=== PATIENT | female | born 1945 | race Caucasian/White ===

== ENCOUNTER 2017-05-24 20:08 | Emergency (ER) | payer MEDICARE, OTHER ==
[~2017-05-24] VITALS: Ht 162.6 cm; Wt 83.5 kg
[2017-05-24 20:16] VITALS: Ht 162.6 cm; Wt 83.5 kg
[2017-05-24] MEDS ORDERED: ACETAMINOPHEN 325 MG TAB PO ONE (22:00)
--- NOTE | 2017-05-24 22:41 | RADRPT ---
PROCEDURE: CT Head without. CLINICAL INDICATION: Head injury. TECHNIQUE: The study was performed utilizing a multi-slice, multidetector CT scanner. Direct spira l 1 mm axial sections were obtained through the head without the use of intravenous contrast materia l. 1 or more of the following dose reduction techniques were utilized: Automated exposure control, adjustment of the mA and/or kV according to patient's size, iterative reconstruction technique. Co betsy and sagittal reformations were obtained. The images were reviewed on a PACS workstation. RADIATION DOSE: CTDIvol: 40.5 mGyDLP: 720.2 mGy-cm COMPARISON: No prior studies are available for comparison. FINDINGS: There is no intracranial hemorrhage, extra-axial fluid collection, mass lesion, midline shift or hyd rocephalus. There is mild prominence of the cerebral sulci, lateral and third ventricles. There is mild periventricular and subcortical white matter hypodensity. There is mild arteriosclerotic calc ification of the parasellar internal carotid arteries. The beal-white matter differentiation is pre served. The basal cisterns are patent. The midline structures are intact. There is soft tissue sw elling in the right parietal region without evidence of underlying calvarial fracture. The orbits ar e normal in appearance. The visualized paranasal sinuses, mastoid air cells and middle ear cavities are normally aerated. IMPRESSION: 1. No acute intracranial abnormality. No intracranial hemorrhage, extra-axial fluid collection, ma ss lesion or hydrocephalous. 2. Mild peripheral and central cerebral volume loss. 3. Slight tissue swelling in the right parietal region without evidence of underlying calvarial fra cture. 4. Mild periventricular and subcortical white matter hypodensity, likely related to chronic microan giopathic changes. RPTAT: HGAS .Yogi Sheridan MD, Date Time Electronically viewed and signed by .Yogi Sheridan MD, MD on 05/24/2017 22:41 .S/
--- NOTE | 2017-05-24 22:42 | RADRPT ---
PROCEDURE: XR Chest. CLINICAL INDICATION: Chest pain. TECHNIQUE: AP portable views of the chest were obtained. COMPARISON: None available FINDINGS: The cardiomediastinal silhouette is within normal limits. There is moderate atherosclerosis of the t horacic aorta with tortuous appearance of the aorta. There is no evidence of aneurysm formation. Th e lungs are clear. No signs of pleural fluid or pneumothorax are seen. The osseous structures and so ft tissues are unremarkable. IMPRESSION: 1. No evidence for active cardiopulmonary disease. 2. Moderate atherosclerosis of the thoracic aorta. RPTAT: HGAS .Yogi Sheridan MD, Date Time Electronically viewed and signed by .Yogi Sheridan MD, on 05/24/2017 22:42 .S/
--- NOTE | 2017-05-24 22:44 | RADRPT ---
PROCEDURE: XR Hand. CLINICAL INDICATION: Right hand pain status post fall. TECHNIQUE: AP, lateral and oblique views of the right and were obtained. COMPARISON: No prior studies are available for comparison. FINDINGS: The area of indicated pain is over the right fifth digit. The right fifth metacarpal, proximal middl e and distal phalanges are intact. There is diffuse severe osteoarthritis involving the second throu gh fifth PIP and DIP joints with erosive osteoarthritis involving the third and fourth DIP joints an d the third PIP joint. There is also suggestion of early erosive deformity involving the second DIP joint. There is diffuse moderate osteopenia. There is no evidence of fracture. IMPRESSION: 1. No acute fracture involving the fifth digit/medial right hand. 2. 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 RPTAT: HGAS .Yogi Sheridan MD, MD Date Time Electronically viewed and signed by .Yogi Sheridan MD, on 05/24/2017 22:43 .S/
--- NOTE | 2017-05-24 22:45 | RADRPT ---
PROCEDURE: XR Ribs. CLINICAL INDICATION: Right-sided rib pain. TECHNIQUE: Multiple oblique views of the right ribs were obtained. The images were reviewed on a PACS workstation. COMPARISON: None. FINDINGS: There is extensive motion artifact on the oblique view, limiting evaluation. There is diffuse modera te osteopenia. No definite right-sided rib fracture is seen on the AP and LPO views. IMPRESSION: 1. Significantly limited evaluation due to extensive motion in the right posterior oblique view. No definite right-sided rib fracture is seen on the AP or LPO views. 2. The left sided ribs appear intact. RPTAT: HGAS .Yogi Sheridan MD, MD Date Time Electronically viewed and signed by .Yogi Sheridan MD, on 05/24/2017 22:45 .S/
--- NOTE | 2017-05-24 22:49 | RADRPT ---
PROCEDURE: CT Cervical Spine without contrast. CLINICAL INDICATION: Cervical spine pain status post trauma. TECHNIQUE: The study was performed on a multislice multidetector CT scanner. Spiral axial 1 mm im ages were obtained through the cervical spine and reformatted at 2.5 mm slice thickness without cont rast. 1 or more of the following dose reduction techniques were utilized: Automated exposure contr ol, adjustment of the mA and/or kV according to patient's size, iterative reconstruction technique. Coronal and sagittal reformations were obtained. The images were reviewed on a PACS workstation. RADIATION DOSE: CTDIvol: 22.4 mGyDLP: 6 and 10.2 mGy-cm COMPARISON: No prior studies are available for comparison. FINDINGS: There is trace retrolisthesis of C5 on C6 and trace anterolisthesis of C6 on C7. There are anterior osteophytes at C5 696 with moderate disc-space narrowing and associated discogenic endplate changes. The remaining vertebral body heights are maintained. There is diffuse moderate osteopenia. There is prominent subchondral sclerosis in the inferior T5 endplate, age indeterminate. The posterior eleme nts are unremarkable. The cervical canal is unremarkable. There is a no bone destruction or sclerosi s. The paraspinal soft tissues are unremarkable. No significant paraspinal soft tissue swelling. C2-3: The posterior margin of the disc, thecal sac and neural foramina are normal in appearance. C3-4: The posterior margin of the disc, thecal sac and neural foramina are normal in appearance. C4-5: There is a 1-2 mm posterior disc/osteophyte complex. The thecal sac and neural foramina are p atent. There is mild bilateral facet spondylosis. C5-6: There is a broad-based 2 mm right paracentral disc/osteophyte complex. The thecal sac is gloria nt. There is mild bilateral facet hypertrophy and moderate right uncovertebral joint spondylosis. Th ere is moderate right neural foraminal narrowing. The left neural foramen is patent. C6-7: There is a broad-based 2 mm posterior disc/osteophyte complex. The thecal sac is patent. The re is mild bilateral facet intervertebral joint spondylosis. There is mild to moderate bilateral ignacio ral foraminal narrowing. C7-T1: There is a 1-2 mm posterior disc/osteophyte complex. The thecal sac and neural foramina are patent. IMPRESSION: 1. Subchondral sclerosis in the inferior T5 vertebral body, which appears to be related to severe s pondylosis at this level, though incompletely visualized. If clinical concern for axial loading inju ry, MRI of the thoracic spine may be helpful to exclude underlying acute fracture. 2. Moderate spondylosis at C5-6 and C6-7 without significant central stenosis. 3. No acute abnormality of the cervical spine. No evidence of fracture or dislocation. RPTAT: HGAS .Yogi Sheridan MD, MD Date Time Electronically viewed and signed by .Yogi Sheridan MD, MD on 05/24/2017 22:49 .S/
[2017-05-24] MEDS ORDERED: ACET500C5 PO (23:07)
--- NOTE | 2017-05-24 23:15 | ERD ---
ER Documentation Chief Complaint Date/Time DATE: 05/24/17 TIME: 23:09 Chief Complaint sp ground level fall. scalp laceration, no ko HPI 71-year-old female patient with a past medical history of diabetes and hypertension presents to the ED complaining of a mechanical fall that occurred earlier today. Patient reports that she was helping her daughter move items and she accidentally missed a foot step and fell in the back of her head. Reports that she sustained a laceration. Reports that she fell on the right side of her body. States that she has some right rib pain as well as right hand pain. Reports that she is right-handed. Describes pain as achy and rates it a 5 out of 10. Denies any loss of consciousness. Denies taking any blood thinners. Denies any chest pain, shortness of breath, nausea, vomiting, diarrhea, constipation. ROS All systems reviewed and are negative except as per history of present illness. Medications Home Meds Active Scripts Acetaminophen* (Tylophen*) 500 Mg Capsule, 1 CAP PO Q6H Y for PAIN AND OR ELEVATED TEMP, #20 CAP Prov:ROSS BACON PA-C 05/24/17 Allergies Allergies: Coded Allergies: No Known Allergy (Unverified , 05/24/17) PMhx/Soc History of Surgery: Yes (Appy,Hysterectomy) Anesthesia Reaction: No Hx Neurological Disorder: No Hx Respiratory Disorders: No Hx Cardiac Disorders: Yes (HTN) Hx Psychiatric Problems: No Hx Miscellaneous Medical Probl: Yes (NIDDM) Hx Alcohol Use: No Hx Substance Use: No Hx Tobacco Use: No Physical Exam Vitals Vital Signs Date Time Temp Pulse Resp B/P Pulse Ox O2 Delivery O2 Flow Rate FiO2 05/24/17 20:16 97.5 75 20 161/89 98 Physical Exam Const: [id number]-[id number], well-nourished. In no acute distress. Head: Atraumatic, normocephalic. 3 cm horizontal laceration noted on posterior occiput. No hematoma. No keating sign. Eyes: Normal Conjunctiva without injection. No purulent discharge. PERRLA. EOMI ENT: Normal external ear. Ear canal without erythema. Tympanic membrane pearly beal without effusion or bulging. No hemotympanum. Nasal canal clear with normal turbinates. Moist oropharynx without tonsillar exudates. Non- erythematous pharynx. Uvula midline. No drooling. No trismus. Neck: No cervical midline tenderness. Full range of motion. No meningismus. No cervical lymphadenopathy. No JVD. Resp: Clear to auscultation bilaterally. No wheezing, rhonchi, rales, or crackles. No accessory muscle use. No retractions. Cardio: Regular rate and rhythm. No murmurs, rubs or gallops. Abd: Soft, non tender, non distended. Normal bowel sounds. No palpable masses. No rebound tenderness. No guarding. Negative McBurney's Point. Negative Hubbard's Sign. Skin: Normal skin turgor. No petechiae or rashes Back: No midline tenderness. No CVA tenderness. Ext: No cyanosis, or edema. Distal pulses intact bilaterally. Neur: Awake and alert. Normal gait. Normal coordination. Cranial Nerves II- VII intact. Normal finger to nose. Muscle strength 5/5. Sensation intact. Psych: Normal Mood and Affect Results 24 hrs Current Medications Medications (Trade) Dose Ordered Sig/Marsha Route PRN Reason Start Time Stop Time Status Last Admin Dose Admin Acetaminophen (Tylenol Tab) 650 mg ONCE ONCE PO 05/24/17 22:00 05/24/17 22:01 DC 05/24/17 21:40 Procedures/MDM 71-year-old female patient with a past medical history of diabetes and hypertension presents to the ED complaining of a mechanical fall. Patient is afebrile and nontoxic-appearing. Patient's blood pressure is 161/89. Patient' s blood pressure was elevated (>120/80) but appears stable without evidence of hypertension emergency or urgency. The patient was counseled about the risks of hypertension and urged to pursue outpatient monitoring and therapy within a week with their primary care physician. Tylenol given to patient here in the ED with improvement of her symptoms. A CT of the brain without contrast, CT of the cervical neck, chest x-ray, right ribs x-ray, right hand x-ray was ordered to further evaluate patient. PROCEDURE: CT Head without. CLINICAL INDICATION: Head injury. TECHNIQUE: The study was performed utilizing a multi-slice, multidetector CT scanner. Direct spiral 1 mm axial sections were obtained through the head without the use of intravenous contrast material. 1 or more of the following dose reduction techniques were utilized: Automated exposure control, adjustment of the mA and/or kV according to patient's size, iterative reconstruction technique. Coronal and sagittal reformations were obtained. The images were reviewed on a PACS workstation. RADIATION DOSE: CTDIvol: 40.5 mGy DLP: 720.2 mGy-cm COMPARISON: No prior studies are available for comparison. FINDINGS: There is no intracranial hemorrhage, extra-axial fluid collection, mass lesion, midline shift or hydrocephalus. There is mild prominence of the cerebral sulci , lateral and third ventricles. There is mild periventricular and subcortical white matter hypodensity. There is mild arteriosclerotic calcification of the parasellar internal carotid arteries. The beal-white matter differentiation is preserved. The basal cisterns are patent. The midline structures are intact. There is soft tissue swelling in the right parietal region without evidence of underlying calvarial fracture. The orbits are normal in appearance. The visualized paranasal sinuses, mastoid air cells and middle ear cavities are normally aerated. IMPRESSION: 1. No acute intracranial abnormality. No intracranial hemorrhage, extra-axial fluid collection, mass lesion or hydrocephalous. 2. Mild peripheral and central cerebral volume loss. 3. Slight tissue swelling in the right parietal region without evidence of underlying calvarial fracture. 4. Mild periventricular and subcortical white matter hypodensity, likely related to chronic microangiopathic changes. PROCEDURE: CT Cervical Spine without contrast. CLINICAL INDICATION: Cervical spine pain status post trauma. TECHNIQUE: The study was performed on a multislice multidetector CT scanner. Spiral axial 1 mm images were obtained through the cervical spine and reformatted at 2.5 mm slice thickness without contrast. 1 or more of the following dose reduction techniques were utilized: Automated exposure control, adjustment of the mA and/or kV according to patient's size, iterative reconstruction technique. Coronal and sagittal reformations were obtained. The images were reviewed on a PACS workstation. RADIATION DOSE: CTDIvol: 22.4 mGy DLP: 6 and 10.2 mGy-cm COMPARISON: No prior studies are available for comparison. FINDINGS: There is trace retrolisthesis of C5 on C6 and trace anterolisthesis of C6 on C7. There are anterior osteophytes at C5 696 with moderate disc-space narrowing and associated discogenic endplate changes. The remaining vertebral body heights are maintained. There is diffuse moderate osteopenia. There is prominent subchondral sclerosis in the inferior T5 endplate, age indeterminate. The posterior elements are unremarkable. The cervical canal is unremarkable. There is a no bone destruction or sclerosis. The paraspinal soft tissues are unremarkable. No significant paraspinal soft tissue swelling. C2-3: The posterior margin of the disc, thecal sac and neural foramina are normal in appearance. C3-4: The posterior margin of the disc, thecal sac and neural foramina are normal in appearance. C4-5: There is a 1-2 mm posterior disc/osteophyte complex. The thecal sac and neural foramina are patent. There is mild bilateral facet spondylosis. C5-6: There is a broad-based 2 mm right paracentral disc/osteophyte complex. The thecal sac is patent. There is mild bilateral facet hypertrophy and moderate right uncovertebral joint spondylosis. There is moderate right neural foraminal narrowing. The left neural foramen is patent. C6-7: There is a broad-based 2 mm posterior disc/osteophyte complex. The thecal sac is patent. There is mild bilateral facet intervertebral joint spondylosis. There is mild to moderate bilateral neural foraminal narrowing. C7-T1: There is a 1-2 mm posterior disc/osteophyte complex. The thecal sac and neural foramina are patent. IMPRESSION: 1. Subchondral sclerosis in the inferior T5 vertebral body, which appears to be related to severe spondylosis at this level, though incompletely visualized. If clinical concern for axial loading injury, MRI of the thoracic spine may be helpful to exclude underlying acute fracture. 2. Moderate spondylosis at C5-6 and C6-7 without significant central stenosis. 3. No acute abnormality of the cervical spine. No evidence of fracture or dislocation. PROCEDURE: XR Chest. CLINICAL INDICATION: Chest pain. TECHNIQUE: AP portable views of the chest were obtained. COMPARISON: None available FINDINGS: The cardiomediastinal silhouette is within normal limits. There is moderate atherosclerosis of the thoracic aorta with tortuous appearance of the aorta. There is no evidence of aneurysm formation. The lungs are clear. No signs of pleural fluid or pneumothorax are seen. The osseous structures and soft tissues are unremarkable. IMPRESSION: 1. No evidence for active cardiopulmonary disease. 2. Moderate atherosclerosis of the thoracic aorta. PROCEDURE: XR Hand. CLINICAL INDICATION: Right hand pain status post fall. TECHNIQUE: AP, lateral and oblique views of the right and were obtained. COMPARISON: No prior studies are available for comparison. FINDINGS: The area of indicated pain is over the right fifth digit. The right fifth metacarpal, proximal middle and distal phalanges are intact. There is diffuse severe osteoarthritis involving the second through fifth PIP and DIP joints with erosive osteoarthritis involving the third and fourth DIP joints and the third PIP joint. There is also suggestion of early erosive deformity involving the second DIP joint. There is diffuse moderate osteopenia. There is no evidence of fracture. IMPRESSION: 1. No acute fracture involving the fifth digit/medial right hand. 2. Diffuse severe osteoarthritis of the PIP and DIP joints with erosive osteoarthritis involving the third PIP and DIP joints as well as the second and fourth DIP joints. PROCEDURE: XR Ribs. CLINICAL INDICATION: Right-sided rib pain. TECHNIQUE: Multiple oblique views of the right ribs were obtained. The images were reviewed on a PACS workstation. COMPARISON: None. FINDINGS: There is extensive motion artifact on the oblique view, limiting evaluation. There is diffuse moderate osteopenia. No definite right-sided rib fracture is seen on the AP and LPO views. IMPRESSION: 1. Significantly limited evaluation due to extensive motion in the right posterior oblique view. No definite right-sided rib fracture is seen on the AP or LPO views. 2. The left sided ribs appear intact. Patient likely sustained a right rib contusion, scalp laceration, and hand contusion. Scalp laceration cleaned with Betadine. No foreign bodies noted. Patient gave consent to close the laceration. 3 shanna applied to laceration with no complications. Patient tolerated the procedure. Low suspicion for intracranial bleed, subarachnoid hemorrhage, meningitis, TIA, stroke, skull fracture, seizures, cavernous sinus thrombosis, brain aneurysm, subdural hematoma, epidural hematoma, or other emergent conditions. Patient's extremity symptoms have stabilized while they have been evaluated in the department and are appropriate for outpatient follow up. No evidence of fractures, dislocations , compartment syndrome, neurologic injury, vascular injury, open joint, open fracture, tendon laceration, septic arthritis, osteomyelitis, DVT, foreign body , or other emergent conditions. Discharge medications: Tylenol Follow up with primary care physician in 1-2 days. Instructed patient to return to the ED sooner for any worsening symptoms. Patient's questions were answered. Patient understood and agreed with discharge plan. Patient discharged stable. Departure Diagnosis: Primary Impression: Scalp laceration Encounter type: initial encounter Qualified Code: S01.01XA - Laceration of scalp, initial encounter Condition: Stable Patient Instructions: HEAD INJURY, No Wake-Up (Adult), Laceration, Scalp, Rib Contusion, Sprain Hand Referrals: [facility] YOU HAVE RECEIVED A MEDICAL SCREENING EXAM AND THE RESULTS INDICATE THAT YOU DO NOT HAVE A CONDITION THAT REQUIRES URGENT TREATMENT IN THE EMERGENCY DEPARTMENT. FURTHER EVALUATION AND TREATMENT OF YOUR CONDITION CAN WAIT UNTIL YOU ARE SEEN IN YOUR DOCTORS OFFICE WITHIN THE NEXT 1-2 DAYS. IT IS YOUR RESPONSIBILITY TO MAKE AN APPOINTMENT FOR FOLOW-UP CARE. IF YOU HAVE A PRIMARY DOCTOR --you should call your primary doctor and schedule an appointment IF YOU DO NOT HAVE A PRIMARY DOCTOR YOU CAN CALL OUR PHYSICIAN REFERRAL HOTLINE AT IF YOU CAN NOT AFFORD TO SEE A PHYSICIAN YOU CAN CHOSE FROM THE FOLLOWING [facility] [address] [address] [facility] [address] [facility] [address] [facility] [address] [facility] [facility] [address] [facility]. [facility] [address] [facility]. [facility] YOU HAVE RECEIVED A MEDICAL SCREENING EXAM AND THE RESULTS INDICATE THAT YOU DO NOT HAVE A CONDITION THAT REQUIRES URGENT TREATMENT IN THE EMERGENCY DEPARTMENT. FURTHER EVALUATION AND TREATMENT OF YOUR CONDITION CAN WAIT UNTIL YOU ARE SEEN IN YOUR DOCTORS OFFICE WITHIN THE NEXT 1-2 DAYS. IT IS YOUR RESPONSIBILITY TO MAKE AN APPOINTMENT FOR FOLOW-UP CARE. IF YOU HAVE A PRIMARY DOCTOR --you should call your primary doctor and schedule and appointment IF YOU DO NOT HAVE A PRIMARY DOCTOR YOU CAN CALL OUR PHYSICIAN REFERRAL HOTLINE AT . IF YOU CAN NOT AFFORD TO SEE A PHYSICIAN YOU CAN CHOSE FROM THE FOLLOWING [facility] INSTITUTIONS: [facility] [address] [place] [address] [facility] [address] [place] [address] [facility] [address] [place] [address] [facility] Additional Instructions: Call your primary care doctor TOMORROW for an appointment during the next 2-3 days.See the doctor sooner or return here if your condition worsens before your appointment time. ROSS BACON PA-C May 24, 2017 23:15
[2017-05-24 23:29] VITALS: BP 157/87; PULSE 75; RESP 18; TEMP 98
== END 2017-05-24 23:30 | disposition home or self-care (01) ==
LOC: FTE 20:08
DX: S01.01XA Laceration without foreign body of scalp, initial encounter (principal); E11.9 Type 2 diabetes mellitus without complications; I10 Essential (primary) hypertension; W10.9XXA Fall (on) (from) unspecified stairs and steps, initial encounter; Y92.9 Unspecified place or not applicable
CPT/HCPCS: 70450; 71010; 71100; 72125

== ENCOUNTER 2017-05-31 17:41 | Emergency (ER) | payer MEDICARE, OTHER ==
[~2017-05-31] VITALS: Ht 167.6 cm; Wt 86.5 kg
[~2017-05-31 17:41] MED LIST: ACET500C5 PO
[2017-05-31 17:43] VITALS: Ht 167.6 cm; Wt 86.5 kg
--- NOTE | 2017-05-31 18:37 | ERD ---
ER Documentation Chief Complaint Chief Complaint Patient here for a suture removal (AKILAH FLETCHER PA-C) HPI 71-year-old female presents emergency department for staple removal from the right parietal scalp from an injury a week ago. Patient has not had any headache, vomiting, visual changes, paresthesias. She has no medical complaints. (AKILAH FLETCHER PA-C) ROS All systems reviewed and are negative except as per history of present illness. (AKILAH FLETCHER PA-C) Medications Home Meds Active Scripts Acetaminophen* (Tylophen*) 500 Mg Capsule, 1 CAP PO Q6H Y for PAIN AND OR ELEVATED TEMP, #20 CAP Prov:ROSS BACON PA-C 05/24/17 Allergies Allergies: Coded Allergies: No Known Allergy (Unverified , 05/24/17) PMhx/Soc History of Surgery: Yes (Appy,Hysterectomy) Anesthesia Reaction: No Hx Neurological Disorder: No Hx Respiratory Disorders: No Hx Cardiac Disorders: Yes (HTN) Hx Psychiatric Problems: No Hx Miscellaneous Medical Probl: Yes (NIDDM) Hx Alcohol Use: No Hx Substance Use: No Hx Tobacco Use: No (AKILAH FLETCHER PA-C) Physical Exam Vitals Vital Signs Date Time Temp Pulse Resp B/P Pulse Ox O2 Delivery O2 Flow Rate FiO2 05/31/17 18:39 68 20 145/67 95 05/31/17 17:43 98.1 69 20 157/67 95 (JHONATAN EDDY DO) Physical Exam General: Well-developed, well-nourished. The patient appears in no acute distress. HEENT: Head is normocephalic, healed laceration of the right parietal scalp with 5 shanna intact, no erythema, no step-offs, no depressions. Neck: Supple. Nontender. Lungs: Clear to auscultation. Normal air movement. Heart: Regular rate and rhythm. S1 and S2 are normal. No murmurs, gallops, or rubs. Abdomen: Soft, nontender, nondistended. Bowel sounds are normoactive. Extremities: No clubbing or cyanosis. Normal pulses. Moving extremities x 4. No weakness. Neurologic: Alert and oriented 3. No focal deficits. Skin: Normal turgor. No rash or lesions. (AKILAH FLETCHER PA-C) Procedures/MDM Sunol were removed 5 without any complications. Wound shows no evidence of infection, foreign body, neurologic injury, vascular injury, open joint or tendon laceration. Patient to follow up PRN. Patient's blood pressure was elevated (>120/80) but appears stable without evidence of hypertension emergency or urgency. The patient was counseled about the risks of hypertension and urged to pursue outpatient monitoring and therapy within a week with their primary care physician. (AKILAH FLETCHER PA-C) The PA removed the sutures very skillfully and I agree with assesment and disposition (JHONATAN EDDY DO) Departure Diagnosis: Primary Impression: Encounter for removal of sutures Condition: Good Patient Instructions: Suture Removal, No Complication AKILAH FLETCHER PA-C May 31, 2017 18:37 JHONATAN EDDY DO Jun 01, 2017 22:10
[2017-05-31 18:39] VITALS: BP 145/67; PULSE 68; RESP 20
== END 2017-05-31 18:40 | disposition home or self-care (01) ==
LOC: FTE 17:41
DX: Z48.02 Encounter for removal of sutures (principal); I10 Essential (primary) hypertension; E11.9 Type 2 diabetes mellitus without complications
CPT/HCPCS: 99281